=== PATIENT | female | born 1965 | race Caucasian/White ===

== ENCOUNTER → 2017-09-27 | Outpatient (CLI) | payer OTHER ==
[2016-06-04 04:24] VITALS: BP 135/69
[~2017-09-27] MED LIST: ATEN50TA PO; HYDR-2758 PO; ZOLP5TAB PO
--- NOTE | 2017-09-28 10:20 | KCIC ---
DATE: September 27, 2017 EXAM: MAMMO SHA SCREENING BILATERAL HISTORY: Routine Screening COMPARISON: November 02, 2015 TECHNIQUE: Routine digital mammographic views were obtained. This study was interpreted with the benefit of Computerized Aided Detection (CAD). The breast parenchyma shows scattered fibroglandular densities. Breast parenchyma level B. FINDINGS: There is no suspicious findings. IMPRESSION: Negative examination. BI-RADS CATEGORY: 1 NEGATIVE RECOMMENDED FOLLOW-UP: 12M 12 MONTH FOLLOW-UP PQRS compliance statement: Patient information was entered into a reminder system with a target due date September 27, 2018 for the next mammogram. Mammography is a sensitive method for finding small breast cancers, but it does not detect them all and is not a substitute for careful clinical examination. A negative mammogram does not negate a clinically suspicious finding and should not result in delay in biopsying a clinically suspicious abnormality. "Our facility is accredited by the [employer] Mammography [employer]."
== END | disposition home or self-care (01) ==
LOC: KCIC MAMMO 15:33
PROVIDERS: ATTEND Family Medicine
DX: Z12.31 Encounter for screening mammogram for malignant neoplasm of breast (principal)
CPT/HCPCS: 77063; G0202; 77067

== ENCOUNTER → 2018-04-18 | Outpatient (CLI) | payer OTHER | END | disposition home or self-care (01) | LOC: PNCL 13:55 | DX: M51.36 Other intervertebral disc degeneration, lumbar region (principal); I10 Essential (primary) hypertension; E66.9 Obesity, unspecified; M19.90 Unspecified osteoarthritis, unspecified site | CPT/HCPCS: 99214 ==

== ENCOUNTER → 2018-10-01 | Outpatient (CLI) | payer OTHER ==
[2016-06-04 04:24] VITALS: BP 135/69
[~2018-10-01] MED LIST changes: +ALLO300T PO; +CYCL10TA2 PO; +FURO-68 PO; -HYDR-2758 PO; +HYDR-2761 PO; +OMEP40CA5 PO; +PITA2TAB2 PO; +POTA20TA82 PO; +TRIA1TAB5 PO; +USTE90DI SQ; +ZOLP10TA4 PO
--- NOTE | 2018-10-02 17:26 | KCIC ---
Bilateral digital screening mammograms with 3-D tomosynthesis: Reason for examination: Routine screening. Comparison is made to previous studies dated 09/27/2017 and 11/02/2015. Bilateral mammograms in CC and oblique projections were obtained with 2-D imaging and 3-D tomosynthesis imaging on a Siemens Inspiration unit and reviewed on the workstation. Interpretation was made with the benefit of CAD. The skin and nipples show no abnormalities. No abnormal axillary lymph nodes are seen. The breast parenchyma shows scattered fatty and fibroglandular density. (Breast density: Category B.) There appear to be some nodular densities at approximately the 7:00 B position in the right breast and at approximately the 4:00 B position of the left breast. Further evaluation with ultrasound is recommended. There continued be some small parenchymal densities which are stable. There are no other new dominant masses, suspicious calcifications or architectural distortion. Impression: Nodular parenchymal densities at the 7:00 B position of the right breast and 4:00 B position of the left breast. Recommend further evaluation with ultrasound. BI-RADS Category 0: Incomplete. Needs additional imaging evaluation. "Our facility is accredited by the [employer] Mammography [employer]." This patient's information has been entered into a reminder system for the patient to be notified with the results of her examination and a target date for the next mammogram. Electronically signed by: Digna Campoverde MD (10/02/2018 5:22 PM) [id number]
== END | disposition home or self-care (01) ==
LOC: KCIC MAMMO 16:46
PROVIDERS: ATTEND Physician Assistant Surgical
DX: Z12.31 Encounter for screening mammogram for malignant neoplasm of breast (principal)
CPT/HCPCS: 77063; 77067

== ENCOUNTER → 2018-10-08 | Outpatient (CLI) | payer OTHER ==
[2016-06-04 04:24] VITALS: BP 135/69
--- NOTE | 2018-10-08 17:16 | RAD ---
CLINICAL INDICATION: JONG HALL, who is 52 years of age, presents for further evaluation of a finding noted on her screening mammographic exam of 10/01/2018 COMPARISON: Prior mammographic imaging dating back to 10/01/2018, 09/27/2017 TECHNIQUE: Grayscale and color Doppler sonographic evaluation of both breasts was performed. ULTRASOUND FINDINGS: Targeted ultrasound of the mammographic area of concern was performed in both breasts. Right breast: 7:00 position, 5 cm from the nipple: A near anechoic mass of slightly irregular margins and internal homogeneous low level echoes is present with parallel orientation and is of oval/round shape. There is no internal vascularity on Doppler interrogation. It demonstrates posterior acoustic enhancement and measures 0.6 x 0.5 x 0.3 cm. Left breast: No definite sonographic correlate is identified of the right breast mammographic abnormality. IMPRESSION: 1. Right breast probably benign microcalcifications for which follow up is recommended. 2. Left breast asymmetry for which follow up is recommended. RECOMMENDATION: In the absence of new clinical symptoms or change in physical exam, short term follow up diagnostic examination is recommended in 6 months to assess for interval stability, to include dedicated right breast ultrasound and left breast diagnostic mammography including spot compression views and ultrasound. BIRADS 3: PROBABLY BENIGN Electronically signed by: Elmer Castro MD (10/08/2018 5:13 PM) [facility]
== END | disposition home or self-care (01) ==
LOC: US 10:39
PROVIDERS: ATTEND Physician Assistant Surgical
DX: R92.8 Other abnormal and inconclusive findings on diagnostic imaging of breast (principal)
CPT/HCPCS: 76641

== ENCOUNTER → 2019-03-14 | Outpatient (CLI) | payer OTHER ==
[2016-06-04 04:24] VITALS: BP 135/69
--- NOTE | 2019-03-14 10:35 | KCIC ---
Left breast diagnostic digital mammograms with 3-D tomosynthesis: Reason for examination: Follow-up parenchymal density. Comparison is made to previous examination dated 10/01/2018. Left breast mammograms in CC and oblique projections were obtained with 2-D imaging and 3-D tomosynthesis imaging on a Siemens Inspiration unit and reviewed on the workstation. Interpretation was made with the benefit of CAD. The skin and nipple show no abnormalities. No abnormal axillary lymph nodes are seen. The breast parenchyma shows scattered fatty and fibroglandular density. (Breast density: Category B.) There continues to be some nodularity at the 4:00 B position of the left breast. There is also suggestion of a small nodule at the 7:00 B position of the left breast. Further evaluation with ultrasound will follow. There are no other new dominant masses, suspicious calcifications or architectural distortion. Impression: Nodularity persists at the 4:00 B position of the left breast. New nodularity seen at the 7:00 B position of the left breast. Ultrasound to follow. BI-RAD Category 0: Incomplete. Needs additional imaging evaluation. Bilateral breast ultrasound: Reason for examination: Follow-up right breast nodule. Evaluate left breast densities seen mammographically. Comparison is made to previous study dated 10/08/2018. Ultrasound examination was performed in the left breast in the areas of mammographic concern and in the right breast at the area of previous concern. In the right breast, there continues to be a 6 mm hypoechoic lesion at the 7:00 position 5 cm from the nipple which is stable. There is also an adjacent 4.9 mm fibrocystic lesion at the 7:00 position 6 cm from the nipple. No suspicious lesions are seen. No abnormal appearing lymph nodes are seen in the axilla. In the left breast there is a 6.5 x 6.7 mm hypoechoic irregularly marginated lesion at the 4:00 position 7 cm from the nipple which would appear to correspond with the area of mammographic concern. Further evaluation of this site with ultrasound-guided biopsy is recommended. In the 6:30 position 5 cm from the nipple, there is a small 6.5 mm fibrocystic lesion with no abnormal vascularity. No other focal lesions are seen. No abnormal appearing lymph nodes are seen in the axilla. IMPRESSION: 6 mm nodule in the right breast at the 7:00 position remain stable in size consistent with a complicated cyst. Additional adjacent 4.9 mm fibrocystic lesion is also present at the 7:00 position of the right breast. 6.5 mm fibrocystic lesion at the 6:30 position of the left breast with a benign appearance. 6.7 x 6.5 mm hypoechoic lesion with irregular margination at the 4:00 position of the left breast 7 cm from the nipple. Recommend ultrasound-guided biopsy. BI-RADS Category 4: Suspicious. The findings were discussed with the patient and the patient's physician, Dr. Chuy Shah, was notified about these findings at 10:31 AM on 03/14/2019. "Our facility is accredited by the [employer] Mammography Program." This patient's information has been entered into a reminder system for the patient to be notified with the results of her examination and a target date for the next mammogram. Electronically signed by: Digna Campoverde MD (03/14/2019 10:32 AM) [id number]
== END | disposition home or self-care (01) ==
LOC: KCIC MAMMO 07:54
PROVIDERS: ATTEND Family Medicine
DX: N64.89 Other specified disorders of breast (principal); N63.13 Unspecified lump in the right breast, lower outer quadrant
CPT/HCPCS: 76641; 77065; G0279; 77061

== ENCOUNTER → 2019-04-05 | Outpatient (CLI) | payer OTHER ==
[2016-06-04 04:24] VITALS: BP 135/69
[~2019-04-05] MED LIST changes: +LIDOCAINE 2%/EPI 1:100,000 20 ML VIAL. IJ ONE
--- NOTE | 2019-04-05 09:23 | RAD ---
Left breast ultrasound, 04/05/2019: HISTORY: Suspicious left breast nodule Outside imaging demonstrated an area of suspicious shadowing at the 4:00 location in the left breast. A targeted ultrasound of that region was performed in preparation for planned biopsy. This process could not be redemonstrated. No target for biopsy is identified in this region. The current imaging suggests that this was a pseudolesion on a technical basis. Follow-up consisting of bilateral mammography and bilateral breast ultrasound in 6 months is suggested. Breast MR would be a reasonable alternative. BI-RADS 3-probably benign finding Electronically signed by: Dejan Painter MD (04/05/2019 9:20 AM) [facility]
== END | disposition home or self-care (01) ==
LOC: US 07:54
PROVIDERS: ATTEND Physician Assistant Surgical
DX: N63.23 Unspecified lump in the left breast, lower outer quadrant (principal)
CPT/HCPCS: 76641

== ENCOUNTER → 2019-05-10 | Outpatient (CLI) | payer OTHER ==
[2016-06-04 04:24] VITALS: BP 135/69
[~2019-05-10] MED LIST changes: -LIDOCAINE 2%/EPI 1:100,000 20 ML VIAL. IJ ONE
--- NOTE | 2019-05-10 11:47 | CARD ---
MR#: [id number] Date of Study: 05/10/2019 Ordering Physician: DANG PINON, Referring Physician: DANG PINON Tech: Nola Santos RDCS APPROVED REPORT EXAM: Two-dimensional and M-mode echocardiogram with Doppler and color Doppler. Other Information Quality : Technically LimitedHR: 67bpm Rhythm : NSRTechnically limited study due to body habitus. INDICATION Hypertension/HCVD 2D DIMENSIONS RVDd3.2 (2.9-3.5cm)Left Atrium(2D)3.9 (1.6-4.0cm) IVSd1.1 (0.7-1.1cm)Aortic Root(2D)3.1 (2.0-3.7cm) LVDd5.2 (3.9-5.9cm)LVOT Diameter2.4 (1.8-2.4cm) PWd1.3 (0.7-1.1cm)LVDs3.3 (2.5-4.0cm) FS (%) 35.6 %SV83.0 ml M-Mode DIMENSIONS Left Atrium(MM)3.45 (2.5-4.0cm)Aortic Root3.41 (2.2-3.7cm) Aortic Valve AoV Peak Bin.139.6cm/sAoV VTI27.5cm AO Peak GR.7.8mmHgLVOT Peak Bin.114.7cm/s AO Mean GR.4mmHgAVA (VMAX)3.61cm2 HILDA (VTI)3.50cm2 Mitral Valve MV E Brcscsea289.8cm/sMV DECEL [id number] MV A Kouyvkce77.8cm/sE/A Ratio1.3 Pulmonary Valve PV Peak Ycmuvwvh317.2cm/s Pulmonary Vein S1 Ecwkqgpg61.7cm/sD2 Nkjkdtmu81.5cm/s PVa kmicpzbx77fokk LEFT VENTRICLE The left ventricle is normal size. There is mild concentric left ventricular hypertrophy. The Ejectio n Fraction is 55-60%. The left ventricular systolic function is normal and the ejection fraction is w ithin normal range. There is normal LV segmental wall motion. Transmitral Doppler flow pattern is Gra de II-pseudonormal filling dynamics. RIGHT VENTRICLE The right ventricle is normal size. There is normal right ventricular wall thickness. The right ventr icular systolic function is normal. ATRIA The left atrium size is normal. The right atrium size is normal. The interatrial septum is intact wit h no evidence for an atrial septal defect or patent foramen ovale as noted on 2-D or Doppler imaging. AORTIC VALVE The aortic valve is normal in structure and function. The aortic valve is trileaflet. Doppler and Col or Flow revealed no significant aortic regurgitation. There is no significant aortic valvular stenosi s. There is no aortic valvular vegetation. MITRAL VALVE The mitral valve is normal in structure and function. There is no evidence of mitral valve prolapse. There is no mitral valve stenosis. Doppler and Color Flow revealed no mitral valve regurgitation note d. TRICUSPID VALVE The tricuspid valve is normal in structure and function. Doppler and Color Flow revealed no tricuspid valve regurgitation noted. There is no tricuspid valve prolapse or vegetation. There is no tricuspid valve stenosis. PULMONIC VALVE The pulmonic valve is not well visualized. GREAT VESSELS The aortic root is normal in size. The ascending aorta is normal in size. The IVC is normal in size a nd collapses >50% with inspiration. PERICARDIAL EFFUSION There is no evidence of significant pericardial effusion. Critical Notification Critical Value: No <Conclusion> The left ventricle is normal size. The Ejection Fraction is 55-60%. The left ventricular systolic function is normal and the ejection fraction is within normal range. There is mild concentric left ventricular hypertrophy. There is no significant aortic valvular stenosis. Doppler and Color Flow revealed no significant aortic regurgitation. Doppler and Color Flow revealed no mitral valve regurgitation noted. Doppler and Color Flow revealed no tricuspid valve regurgitation noted. Signed by : Morgan Gupta MD Electronically Approved : 05/10/2019 11:47:38
--- NOTE | 2019-05-13 12:11 | RAD ---
MR#: [id number] Date of Study: 05/10/2019 Ordering Physician: DANG PINON, Referring Physician: DANG PINON, Tech: Margarita Rodriguez RVT,KANNAN APPROVED REPORT Patient Location : OUT-PATIENT Indications Lower Extremity Edema : Past History DVT : Greater Saphenous Veins (GSV) Significant venous relux noted in the RIGHT GSV at the following levels : Superficial Femoral Junctio n, Proximal Thigh, Mid Thigh, Distal Thigh, Mid Calf, Distal Calf Significant venous relux noted in the LEFT GSV at the following levels : Superficial Femoral Junction , Proximal Thigh, Mid Thigh Lesser Saphenous Veins (LSV) Right Thigh extension noted : Yes Leftt Thigh extension noted : Yes Findings Grayscale images of the bilateral saphenofemoral junctions do not reveal any obvious evidence of thro mbus. The right great saphenous vein measures approximately 9 mm and the left great saphenous vein measures approximately 7 mm. The bilateral greater saphenous veins are tortuous and dilated with multiple superficial varicosities present bilaterally. There is reflux noted in the right great saphenous vein at 1.1 seconds and on t he left saphenous vein at 1.6 seconds. The bilateral lesser saphenous veins do not show any evidence of reflux. Critical Notification Critical Value: No <Conclusion> 1. Dilated greater saphenous veins with multiple varicosities with reflux of greater than one second bilaterally. Signed by : Alban Powers, Electronically Approved : 05/13/2019 12:10:43
== END | disposition home or self-care (01) ==
LOC: ECHO 10:53
PROVIDERS: ATTEND Internal Medicine Cardiovascular Disease
DX: I83.893 Varicose veins of bilateral lower extremities with other complications (principal); I11.9 Hypertensive heart disease without heart failure
CPT/HCPCS: 93306; 93970

== ENCOUNTER → 2019-09-17 | Outpatient (CLI) | payer OTHER ==
[2016-06-04 04:24] VITALS: BP 135/69
[~2019-09-17] MED LIST changes: +OMEP40CA45 PO; -OMEP40CA5 PO
--- NOTE | 2019-09-17 12:19 | KCIC ---
EXAM: Bilateral digital diagnostic mammogram with tomosynthesis; bilateral breast sonogram. HISTORY: 53-year-old female presents for short-term follow-up evaluation of a hypoechoic lesion within the left breast demonstrated on a sonogram dated 03/13/2019. Sonographic biopsy of this lesion was recommended; however, this was not reproducible at the time of biopsy on 04/05/2019. Short-term sonographic follow-up was recommended. TECHNIQUE: Full-field digital craniocaudal and mediolateral oblique 2D and 3D tomosynthesis images of both breasts are obtained for evaluation. Computer aided detection with Inspro software version 9.3 was applied. Sonographic imaging of both breasts including all 4 quadrants and the retroareolar tissues was performed. COMPARISON: 03/14/2019, 10/01/2018 BREAST PARENCHYMAL DENSITY: Level B - Scattered fibroglandular densities. FINDINGS: There is no new suspicious mass, microcalcification or region of architectural distortion. There is stable areas of nodularity and asymmetry within both breasts. Sonographic imaging of the right breast demonstrates a 6 mm circumscribed hypoechoic lesion likely representing a cyst or fibroadenoma at the 7:00 position 5 cm from the nipple. There is an adjacent hypoechoic lesion measuring 5 mm with slightly indistinct margins at the 7:00 position 6 cm from the nipple, possibly fibrocystic in etiology. Sonographic imaging of the left breast demonstrates a benign fibrous cystic lesion measuring 6 mm at the 6:30 position 5 cm from the nipple. The previously demonstrated lesion at the 4:00 position is not seen. IMPRESSION: 1. No new suspicious mammographic finding. 2. Suspected subcentimeter benign cystic and fibrocystic lesions within both breasts and possible fibroadenoma within the right breast. The previously demonstrated lesion of concern at the 4:00 position of the left breast is not seen. 3. BI-RADS Category 3: Probably benign finding(s). Precautionary short term follow up with a bilateral breast sonogram in 6 months is recommended to confirm longer-term stability. If your mammogram demonstrates that you have dense breast tissue, which could hide abnormalities, and if you have other risk factors for breast cancer that have been identified, you might benefit from supplemental screening tests that may be suggested by your ordering physician. Dense breast tissue, in and of itself, is a relatively common condition. This information is not provided to cause undue concern, but rather to raise your awareness and to promote discussion with your physician regarding the presence of other risk factors, in addition to dense breast tissue. A report of your mammography results will be sent to you and your physician. You should contact your physician if you have any questions or concerns regarding this report. Mammography is a sensitive method for finding small breast cancers, but it does not detect them all and is not a substitute for careful clinical examination. A negative mammogram does not negate a clinically suspicious finding and should not result in delay in biopsying a clinically suspicious abnormality. PQRS compliance statement - Patient information was entered into a reminder system with a target due date for the next mammogram. "Our facility is accredited by the [employer] Mammography [employer]." Electronically signed by: Lani Haines MD (09/17/2019 12:16 PM) [id number]
== END | disposition home or self-care (01) ==
LOC: KCIC MAMMO 09:46
PROVIDERS: ATTEND Family Medicine
DX: N64.89 Other specified disorders of breast (principal)
CPT/HCPCS: 76641; 77066; G0279; 77062

== ENCOUNTER → 2020-06-18 | Outpatient (CLI) | payer OTHER ==
[2016-06-04 04:24] VITALS: BP 135/69
[~2020-06-18] MED LIST changes: +POTA20TA4 PO; -POTA20TA82 PO
--- NOTE | 2020-06-19 19:22 | KCIC ---
Bilateral breast ultrasound: Reason for examination: Follow-up nodules. Ultrasound examination of the breasts and axilla bilaterally was performed. In the right breast at the 7:00 position 5 cm, there continues to be a 6.9 mm cystic lesion. In the 7:00 position 6 cm from the nipple, there continues to be a small 4.8 mm fibrocystic lesion. No new cystic or solid lesions are seen. No abnormal appearing lymph nodes are seen in the right axilla. In the left breast at the 6:30 position, there continues to be a small 3.8 mm fibrocystic lesion which has decreased in size. No other cystic or solid nodules are seen. No abnormal appearing lymph nodes are seen in the left axilla. IMPRESSION: No change in the small cystic and fibrocystic lesions seen in the breasts. Recommend continued 6 month follow-up with ultrasound at the time of bilateral mammograms. BI-RADS Category 3: Probably Benign. "Our facility is accredited by the [employer] Mammography Program." This patient's information has been entered into a reminder system for the patient to be notified with the results of her examination and a target date for the next mammogram. Electronically signed by: Digna Campoverde MD (06/19/2020 7:19 PM) [id number]
== END | disposition home or self-care (01) ==
LOC: KCIC US 12:44
PROVIDERS: ATTEND Family Medicine
DX: N60.01 Solitary cyst of right breast (principal); N60.02 Solitary cyst of left breast
CPT/HCPCS: 76641